=== PATIENT | male | born 1965 | race Caucasian/White ===

== ENCOUNTER 2025-08-12 09:35 | Outpatient (AMB) | payer BC, SELFPAY ==
--- NOTE | 2025-08-12 09:38 | MHC.PC.OV ---
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 Allergies No Known Allergies Allergy (Verified 08/12/25 09:41) Medication List - Last Reconciled 08/13/25 by CHEPE Ward minoxidil 2.5 mg PO DAILY semaglutide (weight loss) (Wegovy) 2.4 mg (0.75 mL) subcut QWEEK Tobacco use date assessed: 08/12/25 Dental Screening Dental Screen Date: 08/12/25 Did you have a dental visit in the last 12 months?: Yes Did you have a dental problem in the last 6 months where you did not have access to dental care?: No Was dental information given to patient?: Patient has dentist HPI HPI Comments History of Present Illness Details This is a 59-year-old female with a past medical history of obesity and hair last presenting to establish care. Her last physical exam at [facility] was summer 2023. Her initial starting weight prior to Wegovy was 170 lb. She weighs 155 lb 2 oz today. She is not at her goal weight yet. She is trying to exercise but she has a very busy schedule. She follows a low-carbohydrate diet and avoid sugars and alcohol except occasionally she drinks socially. Her weight has plateaued at her current dose. She denies side effects, and she would like to increase to 2.4 mg weekly. She sees [facility] for hair loss. She recently started minoxidil which helps. She had breast implants in 1994. She gets annual mammograms. She would like referral to Plastic surgery to discuss removing them. She did have leakage from 1 over the years. She denies pain. 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 Declines colonoscopy. She is average risk. Cologuard ordered. Declines flu vaccine. ROS: Constitutional: No unexplained weight loss, fever, chills, fatigue or night sweats. Eyes: No vision changes, blurry vision, double vision, eye pain, eye redness, eye discharge. Gastrointestinal: No anorexia, nausea, vomiting or diarrhea. No abdominal pain or blood in stool. Endocrine: No cold or heat intolerance. No polyuria or polydipsia. Psychiatric: No depression or anxiety. No SI/HI. Physical exam: Constitutional: Alert, in no distress. Neck: Supple, Full range of motion. No lymphadenopathy. No palpable thyroid masses. Respiratory: Clear to auscultation. Cardiovascular: S1 S2 regular. No murmurs. Gastrointestinal: Abdomen soft, non-tender, non-distended. Normal bowel sounds. No palpable masses. Extremities: Warm and well perfused. No clubbing, cyanosis or edema Psychiatric: Normal mood and affect [facility] Medical History (Updated 08/13/25 @ 12:22 by CHEPE Ward) Hair loss Obesity Screening for colon cancer Screening for cardiovascular condition Family History (Updated 08/12/25 @ 10:33 by Yolanda Mckay [facility]) Father Asthma COPD (chronic obstructive pulmonary disease) Hypertension Hyperlipemia Cardiovascular disease Lung cancer Mother Diabetes Thyroid disorder FHx: kidney cancer Paternal Grandmother Diabetes Maternal Grandmother Diabetes Paternal Grandfather Cardiovascular disease Maternal Grandfather Lung cancer Social History (Updated 08/12/25 @ 09:44 by Yolanda Mckay [facility]) Housing: House Alcohol intake: never Patient Tobacco Use Status: Never used Tobacco e-Cigarette/Vaping Use: Never Used Second Hand Smoke Exposure: No service: No Current occupational status: employed 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 1. Little interest or pleasure in doing things: not at all 2. Feeling down, depressed, or hopeless: not at all 3. Trouble falling or staying asleep, or sleeping too much: not at all 4. Feeling tired or having little energy: not at all 5. Poor appetite or overeating: not at all 6. Feeling bad about yourself - or that you are a failure or have let yourself or your family down: not at all 7. Trouble concentrating on things, such as reading the newspaper or watching television: not at all 8. Moving or speaking so slowly that other people could have noticed. Or the opposite - being so fidgety or restless that you have been moving around a lot more than usual: not at all 9. Thoughts that you would be better off or of hurting yourself in some way: not at all Total score: 0 Depression Screening Interpretation: Negative Depression Screening Done: Yes 32626 - PHQ-9 Billing: Yes Source: Developed by Drs. Randy Banuelos, Nichol Velez, Omar Morris and colleagues, with an educational malena from [employer]. Thrive Questionnaire Date Thrive assessed: 08/12/25 I am a: Patient What is your living situation today?: I have a steady place to live Within the past 12 months, did the food you bought not last and you didn't have the money to get more?: Never true Within the past 12 months, did you worry whether your food would run out before you got money to buy more?: Never true Do you have trouble paying for medicines?: I choose not to answer this question Do you have trouble getting transportation to medical appointments?: No Do you have trouble paying your heating and electricity bill?: No Do you have trouble taking care of your child, family member or friend?: No Do you have trouble with day-to-day activities such as bathing, preparing meals, shopping, managing finances, etc.?: No Are you currently unemployed and looking for a job?: No Are you interested in more education?: No Please select the resources that you would like help with: None Currently or been in a relationship where the following occur: No concerns reported THRIVE Score: 0 AUDIT C Alcohol Use Questionnaire (AUDIT-C) 1. How often do you have a drink containing alcohol?: Never 3. How often do you have six or more drinks on one occasion?: Never Total Score: 0 MICHAEL-7 AMB Questionnaire MICHAEL-7 Date MICHAEL - 7 assessed: 08/12/25 Feeling nervous, anxious, or on edge: 0 = Not at all Not being able to stop or control worryin = Not at all Worrying too much about different things: 0 = Not at all Trouble relaxin = Not at all Being so restless that it is hard to sit still: 0 = Not at all Becoming easily annoyed or irritable: 0 = Not at all Feeling afraid as if something awful might happen: 0 = Not at all Total MICHAEL-7 score (0-4 normal; 5-9 mild; 10-14 moderate; 15-21 severe): 0 Source: Developed by Drs. Randy Banuelos, Nichol Velez, Omar Morris and colleagues, with an educational malena from [employer]. MICHAEL-7 Assessment Billing MICHAEL-7 Assessment Tool: MICHAEL-7 Assessment 42532 Physical exam (Primary Care) Vital Signs: Last Vital Signs Pulse 81 08/12/25 09:44 Resp 13 08/12/25 09:44 BP 98/60 08/12/25 09:44 Pulse Ox 97 08/12/25 09:44 Oxygen Delivery Method Room Air 08/12/25 09:44 BMI result Body Mass Index 28.4 Tobacco/Smoking Status: Tobacco use Status Tobacco use date assessed 08/12/25 08/12/25 09:49 Patient Tobacco Use Status Never used Tobacco 08/12/25 09:49 e-Cigarette/Vaping Use Never Used 08/12/25 09:49 PHQ-9: PHQ-9 Score PHQ-9: Total score 0 08/12/25 09:59 Depression Screening Interpretation: Negative Thrive Assessment: Date of Thrive Assessment Date Thrive assessed 08/12/25 08/12/25 09:40 Currently or been in a relationship where the following occur: No concerns reported Coding Level of Care Code New Pt Level 4 (20150) Complex EM visit Add On G2211 Diagnoses Obesity E66.9 Screening for colon cancer Z12.11 Screening for cardiovascular condition Z13.6 Hair loss L65.9 Additional Codes MICHAEL-7 Assessment Billing - MICHAEL-7 Assessment Tool: MICHAEL-7 Assessment 93023 ([id number]) PHQ-9 - 72825 - PHQ-9 Billing: Yes ([id number]) Assessment & Plan Assessment & Plan (1) Obesity: Code(s): E66.9 - Obesity, unspecified Category: Medical Plan: Denies side effects on Wegovy. BMI is still overweight today at 28.4, but she has lost a lot of weight. Continue lifestyle modifications, controlling portion sizes, low-carbohydrate diet and avoidance of alcohol. Check labs. Increase Wegovy to 2.4 mg weekly. (2) Screening for colon cancer: Code(s): Z12.11 - Encounter for screening for malignant neoplasm of colon Category: Medical Plan: Cologuard ordered. (3) Screening for cardiovascular condition: Code(s): Z13.6 - Encounter for screening for cardiovascular disorders Category: Medical Plan: Lipid panel ordered. (4) Hair loss: Code(s): L65.9 - Nonscarring hair loss, unspecified Category: Medical Plan: Evaluated by Dermatology and doing well on minoxidil. Plan Schedule physical exam in July 2026. Orders: Orders Comprehensive Met. Panel 08/12/25 E66.3 - Overweight, Z13.6 - Encounter for screening for cardiovascular disorders TSH reflex Free T4 08/12/25 E66.3 - Overweight, Z13.6 - Encounter for screening for cardiovascular disorders Lipid Panel 08/12/25 E66.3 - Overweight, Z13.6 - Encounter for screening for cardiovascular disorders Complete Blood Count no Diff 08/12/25 E66.3 - Overweight, Z13.6 - Encounter for screening for cardiovascular disorders UA w Microscopic 08/12/25 R39.9 - Unspecified symptoms and signs involving the genitourinary system Referrals Cologuard Test Z12.11 - Encounter for screening for malignant neoplasm of colon Medications: New semaglutide (weight loss) (Wegovy) 2.4 mg (0.75 mL) subcut QWEEK 3 mL 5RF
[2025-08-12 09:44] VITALS: BP 98/60; PULSE 81; RESP 13; O2SAT 97; BMI 28.4
== END 2025-08-12 10:29 | disposition home or self-care (01) ==
LOC: HO.HMCFM 09:36
PROVIDERS: PCP Physician Assistant Medical; Visit Provider Physician Assistant Medical
DX: L65.9 Nonscarring hair loss, unspecified (principal); E66.9 Obesity, unspecified; Z68.28 Body mass index [BMI] 28.0-28.9, adult; Z12.11 Encounter for screening for malignant neoplasm of colon; Z13.6 Encounter for screening for cardiovascular disorders

== ENCOUNTER → 2025-08-12 09:35 | Outpatient (BNVA) | payer BC, SELFPAY | PROVIDERS: Visit Provider Physician Assistant Medical | DX: Z76.89 Persons encountering health services in other specified circumstances (principal); E66.9 Obesity, unspecified; Z68.28 Body mass index [BMI] 28.0-28.9, adult; L65.9 Nonscarring hair loss, unspecified; Z98.82 Breast implant status; Z13.31 Encounter for screening for depression; Z13.39 Encounter for screening examination for other mental health and behavioral disorders | CPT/HCPCS: 96127 ==